=== PATIENT | male | born 1940 | race Caucasian/White ===

== ENCOUNTER 2017-04-16 18:58 | Inpatient (IN) | payer MEDICARE ==
[~2017-04-16] VITALS: Ht 160 cm; Wt 45.1 kg
--- NOTE | ~2017-04-16 | PR ---
[place], [place] PROGRESS NOTE NAME: KARINA PERERA UNIT #: [id number] ROOM: 402 DOCTOR: KALYANI RUIZ MD BIRTHDATE: [birth year] DOS: 04/18/2017 SUBJECTIVE: The patient is more awake and alert, appearing better than yesterday. OBJECTIVE: VITAL SIGNS: Blood pressure 85/40, heart rate 72 beats per minute, breathing 18 times per minute, temperature 98 degrees Fahrenheit. GENERAL: Generalized muscle wasting and weakness and advanced adult failure to thrive. HEENT AND NECK: Exam within normal limits. CARDIOVASCULAR SYSTEM: Heart rate is regular in rate and rhythm. S1 and S2 normally audible. LUNGS: Clear to auscultation. ABDOMEN: Soft, nontender. No obvious organomegaly. Bowel sounds are present. EXTREMITIES: Without significant cyanosis or edema. LABS: Blood cultures have been negative. White cell count improved to 12,500. IMPRESSION: 1. The patient with sepsis with severe leukocytosis, mental status change, lethargy, pneumonia, is all improving with treatment of antibiotics. He is more alert. The patient also was hypotensive and he will get more IV fluids. 2. Pneumonia with lower lung infiltrate versus scarring on chest x-ray. Clinically improving. Continue treatment. 3. Severe protein calorie malnutrition. The patient is given extra nutritional supplements. 4. Chronic constipation, treated and controlled. 5. Advance adult failure to thrive. The patient maintains a DNR-CC code status. He is working with physical therapy. We are taking bedsore precautions, every 2 hour turning and using an air mattress. KALYANI RUIZ MD CM:PNTRANS [id number] KALYANI RUIZ MD 04/18/17 1326 interface
--- NOTE | ~2017-04-16 | WRIGHTHP ---
[place], [place] PATIENT HISTORY AND PHYSICAL EXAM NAME: KARINA PERERA UNIT #: [id number] ROOM: 402 DOCTOR: KALYANI RUIZ MD BIRTHDATE: [birth year] DOS: 04/16/2017 HISTORY OF PRESENT ILLNESS: 1. The patient is a 77-year-old gentleman with a DNR-CC code status and advance adult failure to thrive, residing at [facility] for many years now. 2. History of chronic obstructive pulmonary disease and chronic respiratory failure. 3. Chronic primary constipation. 4. Alzheimer's type dementia with some behavioral issues in the past. 5. History of schizophrenia. 6. Major depression, recurrent. 7. Osteoarthritis involving multiple joints. 8. Chronic pain syndrome. 9. Remote history of alcohol dependence. 10. Advanced adult failure to thrive and generalized muscle wasting and weakness. The patient was sent over to [facility] from [facility] and was seen by Mae in brief for increased shortness of breath, weakness, lethargy, confusion. The patient is alert and pleasant and oriented to person in the Emergency Department, along with hypoxemia. The patient's condition was deteriorating at the prison and he was not eating and his family decided to send him over to the Emergency Department. The patient does wake up and is not complaining of any issues. He is very weak. No chest pain, no GI or urinary symptoms. REVIEW OF SYSTEMS: LUNGS: Increasing shortness of breath. GASTROINTESTINAL: No nausea, vomiting, diarrhea, constipation, very poor appetite. CARDIOVASCULAR: No palpitations or chest pains. FAMILY HISTORY: Noncontributory. SOCIAL HISTORY: Resident at prison for many years, maintains a DNR-CC code status. MEDICATIONS: DuoNeb as needed at the prison and is taking MiraLax, Colace, Levaquin and amoxicillin. PHYSICAL EXAMINATION: GENERAL: Awake, alert to person. Pleasant, generalized weakness and muscle wasting, which is extreme. HEENT AND NECK: Extraocular movements are intact. Sclerae are anicteric. Oral mucosa is moist and clean. No obvious facial weakness. Neck is supple without any lymphadenopathy. No thyromegaly. No JVD. No carotid arterial bruits. LUNGS: Clear to auscultation. No wheezing. No rhonchi. CARDIOVASCULAR SYSTEM: Heart rate is regular in rate and rhythm. S1 and S2 normally audible. No significant murmur or any other abnormal cardiac sounds. [place], [place] PATIENT HISTORY AND PHYSICAL EXAM NAME: KARINA PERERA UNIT #: [id number] ROOM: [facility] DOCTOR: JOSEPH ALCALA,KALYANI Ragland BIRTHDATE: [birth year] ABDOMEN: Soft, nontender. No obvious organomegaly. Bowel sounds are present. No obvious herniation. EXTREMITIES: Without significant cyanosis or edema. Warm to touch. CENTRAL NERVOUS SYSTEM: Alert and oriented x 3. Cranial nerves II-XII are intact. Speech is normal. The patient is able to move all extremities. Normal muscle strength. Deep tendon reflexes are equal on both sides. Plantars were downgoing. LABORATORY DATA: Chest x-ray showed COPD with likely chronic bibasilar scarring, superimposed infection, inflammation. Urine creatinine 29.5 and 0.5, albumin 1.8. Normal liver enzymes. White cell count elevated at 20,000. Lactic acid level elevated at 2.1. Influenza A and B were negative. IMPRESSION: 1. The patient presenting with sepsis, leukocytosis, bibasilar pneumonia, lethargy and altered mental status and maintains a DNR comfort care code status. The patient to be treated with antibiotics, corticosteroids, oxygen, blood counts to be repeated every day and the patient to be followed and treated conservatively. 2. Advance adult failure to thrive, generalized muscle wasting and weakness. The patient to be kept on air mattress every 2 hour turning and we will take fall precautions. The patient will also work with physical therapy. 3. Severe protein-calorie malnutrition to be treated with dietary consult and the patient to be encouraged to eat and given dietary supplements. 4. Chronic constipation. We will continue treatment with MiraLax and Colace. KALYANI RUIZ MD CM:HISPHYS:PATIENT HISTORY AND PHYSICAL EXAMINATION 11 17 KALYANI RUIZ MD 04/17/172116 interface
--- NOTE | ~2017-04-16 | DS ---
[place], [place] DISCHARGE SUMMARY NAME: KARINA PERERA UNIT #: [id number] ROOM: 402 DOCTOR: KALYANI RUIZ MD BIRTHDATE: [birth year] DOS: 04/19/2017 DISCHARGE DIAGNOSES: 1. Sepsis with severe leukocytosis, pneumonia and lethargy, altered mental status, resolved with treatment. 2. Old age, advanced disability and advance adult failure to thrive, generalized muscle wasting and ambulatory dysfunction. 3. Chronic primary constipation. 4. COPD and chronic respiratory failure. 5. Late onset Alzheimer's type dementia and behavioral issues. 6. History of schizophrenia. 7. Major depression, recurrent. 8. Osteoarthritis involving multiple joints. 9. Chronic pain syndrome. 10. Remote history of alcohol dependence. HOSPITAL COURSE: The patient with generalized muscle wasting and adult failure to thrive with a DNR comfort care code status, was brought to the Emergency Department for increased shortness of breath, weakness, lethargy, confusion. The patient had basilar pneumonia and severe leukocytosis. The patient was septic and was treated with IV antibiotics. The white cell count has significantly improved. He is more awake and alert and lethargy and altered mental status have resolved and he is breathing more comfortably. The patient was also in acute over chronic respiratory failure, which has improved. Advance adult failure to thrive and poor long-term prognosis. The patient is a good candidate to be followed by hospice. Severe protein calorie malnutrition, followed by Dietary and I gave him extra dietary supplements. Chronic constipation, treated and controlled with MiraLax and Colace. Sacral decubitus stage 2 related to his malnutrition and advanced failure to thrive with generalized weakness and muscle wasting. Late onset Alzheimer's type dementia with some behavioral issues, controlled with present treatment. Chronic primary constipation, treated and controlled. The patient on MiraLax and Colace. LABORATORY DATA: White cell count improved from 20,000 at admission to 10,900 at discharge. Blood cultures were negative. Chest x-ray showed bibasilar infiltrate versus scarring, probable pneumonia. DISCHARGE MANAGEMENT: Augmentin 875 mg twice a day for a week, prednisone for 5 days, Flomax 0.4 mg daily, finasteride 5 mg daily, mirtazapine 15 mg daily. Every 2 hour turning. Wound care. Regular diet. [place], [place] DISCHARGE SUMMARY NAME: KARINA PERERA UNIT #: [id number] ROOM: 402 DOCTOR: KLAYANI RUIZ MD BIRTHDATE: [birth year] KALYANI RUIZ MD CM:DIANNE [id number] KALYANI RUIZ MD 04/19/171940 interface
[2017-04-16 18:58] VITALS: BP 91/51
[~2017-04-16 18:58] MED LIST: AUGMENTIN 875-875 MG PO; AUGMENTIN 875875 MG PO; B-1100 MG PO; COLACE100 MG PO; DULCOLAX10 M1 RC; DULCOLAX100 MG PO; DUONEB 3 MG/3 ML3 M1 INH; Duoneb 3ML 3 MG/3 ML INH; LEVAQUIN500 M2 PO; LIDODERM5% TP; MIRALAX POWDER17 G1 PO; PREDNISONE20 M1 PO; REMERON15 M2 PO; REMERON15 MG PO; RISPERDAL0.5 MG PO; SENNA1 TAB PO; SENOKOT8.6 MG PO; TYLENOL325 M1 PO; TYLENOL650 M1 PO; VITAMIN B1100 MG PO; VITAMIN E400 UNIT PO; ZOFRAN4 MG PO
[2017-04-16 19:06] VITALS: BP 110/62
[2017-04-16 20:01] LABS: HEMATOCRIT 39.3 % (42.0-52.0); HEMOGLOBIN 13.1 g/dl (14.0-18.0); MEAN CELL VOLUME 86.9 fl (80.0-94.0); MEAN CORPUSCULAR HGB CONC 33.3 g/dl (33.0-37.0); PLATELET COUNT AUTOMATED 326 10*3/uL (130-400); RED BLOOD COUNT 4.52 10*6/uL (4.50-5.90); RED CELL DISTRI WIDTH 15.3 % (0-14.5)
[2017-04-16 20:11] LABS: INTERNATIONAL NORM RATIO 1.5 (2.0-3.5)
[2017-04-16 20:20] LABS: TOTAL CELLS COUNTED 100 #CELLS
[2017-04-16 20:21] LABS: BURR CELLS FEW; PLATELET SUFFICIENCY NORMAL (NORMAL); TARGET CELLS FEW
[2017-04-16 20:24] LABS: ALBUMIN 1.8 gm/dl (3.1-4.5); ALKALINE PHOSPHATASE 58 U/L (45-117); BUN 29 mg/dl (7-24); CHLORIDE 98 mmol/L (98-107); CREATININE 0.53 mg/dL (0.70-1.30); LIPASE 60 U/L (73-393); POTASSIUM 3.6 mmol/L (3.5-5.1); SGOT/AST 23 IU/L (3-35); SGPT/ALT 14 U/L (12-78); SODIUM 143 mmol/L (136-145); TOTAL PROTEIN 7.6 gm/dL (6.4-8.2)
[2017-04-16 20:26] LABS: TROPONIN I < 0.015 ng/ml (<0.045)
[2017-04-16 22:15] VITALS: BP 102/68; BP 102/86
[2017-04-16] MEDS ORDERED: MORPHINE S10 MG/5 M1 PO (23:02)
[2017-04-16] MEDS ORDERED: ZINC SULFATE220 M2 PO (23:06)
[2017-04-16] MEDS ORDERED: FINASTERIDE5 M1 PO (23:06)
[2017-04-16] MEDS ORDERED: TAMSULOSIN HCL0.4 MG PO (23:07)
[2017-04-17] VITALS: BP 84/44; BP 98/58
[2017-04-17 08:00] VITALS: BP 86/50
[2017-04-17 16:00] VITALS: BP 86/38
[2017-04-17 20:00] VITALS: BP 78/40; BP 98/64
[2017-04-18 08:00] VITALS: BP 85/39
[2017-04-18 08:24] LABS: RED CELL DISTRI WIDTH 15.9 % (0-14.5)
[2017-04-18 08:29] LABS: CHLORIDE 105 mmol/L (98-107); POTASSIUM 4.4 mmol/L (3.5-5.1); SODIUM 147 mmol/L (136-145)
[2017-04-18 08:30] LABS: HEMATOCRIT 36.6 % (42.0-52.0); HEMOGLOBIN 12.1 g/dl (14.0-18.0); MEAN CELL VOLUME 89.7 fl (80.0-94.0); MEAN CORPUSCULAR HGB 29.7 pg (27.0-31.0); MEAN CORPUSCULAR HGB CONC 33.1 g/dl (33.0-37.0); MEAN PLATELET VOLUME 9.8 fl (9.6-12.3); PLATELET COUNT AUTOMATED 299 10*3/uL (130-400); RED BLOOD COUNT 4.08 10*6/uL (4.50-5.90); WHITE BLOOD COUNT 12.5 10*3/uL (4.8-10.8)
[2017-04-18 08:39] LABS: BUN 16 mg/dl (7-24)
[2017-04-18 08:55] LABS: PLATELET SUFFICIENCY NORMAL (NORMAL); TOTAL CELLS COUNTED 100 #CELLS
[2017-04-18 12:08] VITALS: BP 91/38
[2017-04-18 15:54] VITALS: BP 91/43
[2017-04-18 20:00] VITALS: BP 92/39
[2017-04-19 07:26] LABS: MEAN CELL VOLUME 92.4 fl (80.0-94.0); MEAN CORPUSCULAR HGB 29.7 pg (27.0-31.0); MEAN CORPUSCULAR HGB CONC 32.1 g/dl (33.0-37.0); MEAN PLATELET VOLUME 9.7 fl (9.6-12.3); PLATELET COUNT AUTOMATED 210 10*3/uL (130-400); RED CELL DISTRI WIDTH 15.9 % (0-14.5); WHITE BLOOD COUNT 10.9 10*3/uL (4.8-10.8)
[2017-04-19 07:39] LABS: HEMATOCRIT 30.5 % (42.0-52.0); HEMOGLOBIN 9.8 g/dl (14.0-18.0)
[2017-04-19 07:50] LABS: PLATELET SUFFICIENCY NORMAL (NORMAL); TARGET CELLS FEW; TOTAL CELLS COUNTED 100 #CELLS
[2017-04-19 08:00] VITALS: BP 119/54
[2017-04-19 12:00] VITALS: BP 98/48
[2017-04-19 16:00] VITALS: BP 99/42
== END 2017-04-19 19:35 | DRG 871 ==
LOC: ED 18:58 → EDHOLD 21:03 → 4E 21:03
PROVIDERS: Internal Medicine; Physician Assistant
DX: A41.9 Sepsis, unspecified organism (principal); J18.9 Pneumonia, unspecified organism; J96.21 Acute and chronic respiratory failure with hypoxia; E43 Unspecified severe protein-calorie malnutrition; I95.9 Hypotension, unspecified; L89.152 Pressure ulcer of sacral region, stage 2; F02.81 Dementia in other diseases classified elsewhere, unspecified severity, with behavioral disturbance; G30.1 Alzheimer's disease with late onset; J44.0 Chronic obstructive pulmonary disease with (acute) lower respiratory infection; J44.1 Chronic obstructive pulmonary disease with (acute) exacerbation; F33.9 Major depressive disorder, recurrent, unspecified; Z68.1 Body mass index [BMI] 19.9 or less, adult; R62.7 Adult failure to thrive; R26.9 Unspecified abnormalities of gait and mobility; Z66 Do not resuscitate; Z51.5 Encounter for palliative care; K59.09 Other constipation; F20.9 Schizophrenia, unspecified; M19.90 Unspecified osteoarthritis, unspecified site; G89.4 Chronic pain syndrome; Z79.899 Other long term (current) drug therapy; Z82.61 Family history of arthritis